=== PATIENT | female | born 1930 | race Two or more races ===

== ENCOUNTER → 2017-10-23 | Emergency (ER) | payer OTHER ==
[~2017-10-23] VITALS: Ht 157.5 cm; Wt 51.3 kg
[~2017-10-23] MED LIST: ASA-EC81 MG PO; Coreg PO; EPANED1 MG/1 ML; FUROSEMIDE20 MG PO; HYDRALAZINE HCL25 MG PO; ISOSORBIDE1 GM; LIPITOR40 MG PO; PLAVIX 75MG PO; VASOTEC PO
== END | disposition home or self-care (01) ==
LOC: ER 12:14
DX: G89.11 Acute pain due to trauma (principal); M25.552 Pain in left hip; M79.605 Pain in left leg